=== PATIENT | male | born 1995 | race Caucasian/White ===

== ENCOUNTER 2024-10-31 06:09 | Emergency (ER) | payer OTHER ==
[~2024-10-31] VITALS: Ht 167.6 cm; Wt 79.8 kg
[2024-10-31] MEDS: ACETAMINOPHEN 500 MG TABLET PO ONE (06:44)
[2024-10-31] MEDS: LIDOCAINE 5% TRANSDERMAL PATCH TD ONE (06:44)
[2024-10-31 06:48] VITALS: BP 114/72; TEMP 98.105288
[2024-10-31 07:31] VITALS: PULSE 67; RESP 16; O2SAT 96
== END 2024-10-31 07:48 | disposition home or self-care (01) ==
LOC: EMS 06:09
DX: S22.32XA Fracture of one rib, left side, initial encounter for closed fracture (principal); Z98.890 Other specified postprocedural states; W06.XXXA Fall from bed, initial encounter; Y93.89 Activity, other specified; Y92.89 Other specified places as the place of occurrence of the external cause; Y99.8 Other external cause status
CPT/HCPCS: 99283; 71101; G0238